=== PATIENT | female | born 1935 | race Caucasian/White ===

== ENCOUNTER 2019-03-08 11:18 | Inpatient (IN) | payer MEDICARE, BC ==
[2019-03-08] MEDS ORDERED: Albuterol/Ipratropium 3.0-0.5 MG/3 ML Neb Soln INH ONE (12:15)
[2019-03-08 12:17] LABS: CHLORIDE,CL 102 mEq/L (98-106); SODIUM,NA 142 mEq/L (136-145)
[2019-03-08] MEDS ORDERED: Iopamidol 755 Mg/ML 100 ML Bottle IVPUSH ONE (12:59)
[2019-03-08] MEDS ORDERED: Docusate Sodium 100 MG Cap PO PRN (15:22)
[2019-03-08] MEDS ORDERED: Albuterol/Ipratropium 3.0-0.5 MG/3 ML Neb Soln NEB PRN (15:22)
[2019-03-08] MEDS ORDERED: Sodium Chloride 0.9% 10 ML Syringe FLUSH PRN (15:22)
[2019-03-08] MEDS ORDERED: Albuterol 0.083% 2.5 MG/3 ML Neb Soln NEB PRN (15:35)
[2019-03-08] MEDS: Azithromycin 500 MG in Sodium Chloride 0.9% 250 ML IV SCH (15:46)
[2019-03-08] MEDS: cefTRIAXone 1 GM Vial IVPUSH SCH (15:47)
[2019-03-08] MEDS: Albuterol/Ipratropium 3.0-0.5 MG/3 ML Neb Soln NEB SCH ×2 (17:08→20:17)
[2019-03-08] MEDS: Enoxaparin 40 MG/0.4 ML Syringe SUBCUT SCH (18:42)
[2019-03-09] MEDS: Acetaminophen 325 MG Tab PO PRN (00:30)
[2019-03-09] MEDS: Hydrochlorothiazide 12.5 MG Cap PO SCH (07:35)
[2019-03-09] MEDS: Levothyroxine 50 MCG Tab PO SCH (07:35)
[2019-03-09] MEDS: Albuterol/Ipratropium 3.0-0.5 MG/3 ML Neb Soln NEB SCH ×4 (07:35→19:11)
[2019-03-09] MEDS: Aspirin 81 MG Tab.EC PO SCH (07:35)
[2019-03-09] MEDS: Losartan 100 MG Tab PO SCH (07:36)
[2019-03-09 07:47] LABS: CHLORIDE,CL 104 mEq/L (98-106); SODIUM,NA 144 mEq/L (136-145)
[2019-03-09] MEDS ORDERED: Codeine/Promethazine 10-6.25 MG/5 ML Syrup 5 ML UD Cup PO PRN (08:50)
--- NOTE | 2019-03-09 09:10 | PCM.PN ---
- General Info Date of Service: 03/09/19 Admission Dx/Problem (Free Text): Pneumonia Functional Status: Reports: Pain Controlled, Tolerating Diet, Ambulating - Review of Systems General: Reports: Weakness, Fatigue, Malaise, Chills. Denies: Fever HEENT: Reports: Sinus Congestion, Rhinitis. Denies: Ear Pain, Sore Throat Pulmonary: Reports: Shortness of Breath, Cough, Sputum Cardiovascular: Reports: Lightheadedness. Denies: Chest Pain, Edema Gastrointestinal: Denies: Abdominal Pain, Nausea, Vomiting Genitourinary: Reports: No Symptoms Musculoskeletal: Reports: No Symptoms Skin: Reports: No Symptoms Neurological: Reports: Weakness - Patient Data Vitals - Most Recent: Last Vital Signs Temp 98.5 F 03/09/19 08:00 Pulse 65 03/09/19 08:00 Resp 16 03/09/19 08:00 BP 125/61 03/09/19 08:00 Pulse Ox 94 L 03/09/19 08:00 Weight - Most Recent: 158 lb 14.4 oz Lab Results Last 24 Hours: Laboratory Results - last 24 hr 03/08/19 03/08/19 03/08/19 Range/Units 11:58 11:58 11:58 WBC 9.1 (5.0-10.0) 10^3/uL RBC 4.10 (4.00-5.50) 10^6/uL Hgb 13.0 (12.0-16.0) g/dL Hct 40.0 (37.0-47.0) % MCV 97.6 H (82.0-94.0) fL MCH 31.7 (27.0-32.0) pg MCHC 32.5 L (33.0-38.0) g/dL RDW Coeff of Rosalia 12.3 (11.0-15.0) % Plt Count 272 (150-400) 10^3/uL Neut % (Auto) 67.0 (35-85) % Lymph % (Auto) 16.3 (10-55) % Floyd % (Auto) 14.5 (0-16) % Eos % (Auto) 2.1 (0-5) % Baso % (Auto) 0.1 (0-3) % Neut # (Auto) 6.10 (1.80-7.00) 10^3/uL Lymph # (Auto) 1.48 (1.00-4.80) 10^3/uL Floyd # (Auto) 1.32 H (0.00-0.80) 10^3/uL Eos # (Auto) 0.19 (0.00-0.45) 10^3/uL Baso # (Auto) 0.01 10^3/uL D-Dimer, Quantitative 1.53 H (0.00-0.50) Sodium 142 (136-145) mEq/L Potassium 4.1 (3.5-5.0) mEq/L Chloride 102 (98-106) mEq/L Carbon Dioxide 32 (21-32) mmol/L BUN 14 (7-18) mg/dL Creatinine 0.7 (0.6-1.0) mg/dL Est Cr Clr Drug Dosing TNP Estimated GFR (MDRD) > 60 (>=60) mL/min Glucose 96 (75-99) mg/dL Lactic Acid (0.4-2.0) mmol/L Calcium 9.1 (8.4-10.1) mg/dL C-Reactive Protein 16.8 H (0.2-0.8) mg/dL 03/08/19 03/09/19 03/09/19 Range/Units 15:34 07:00 07:00 WBC 7.3 (5.0-10.0) 10^3/uL RBC 3.78 L (4.00-5.50) 10^6/uL Hgb 11.9 L (12.0-16.0) g/dL Hct 37.3 (37.0-47.0) % MCV 98.7 H (82.0-94.0) fL MCH 31.5 (27.0-32.0) pg MCHC 31.9 L (33.0-38.0) g/dL RDW Coeff of Rosalia 12.7 (11.0-15.0) % Plt Count 271 (150-400) 10^3/uL Neut % (Auto) 53.0 (35-85) % Lymph % (Auto) 30.3 (10-55) % Floyd % (Auto) 14.2 (0-16) % Eos % (Auto) 2.1 (0-5) % Baso % (Auto) 0.4 (0-3) % Neut # (Auto) 3.84 (1.80-7.00) 10^3/uL Lymph # (Auto) 2.20 (1.00-4.80) 10^3/uL Floyd # (Auto) 1.03 H (0.00-0.80) 10^3/uL Eos # (Auto) 0.15 (0.00-0.45) 10^3/uL Baso # (Auto) 0.03 10^3/uL D-Dimer, Quantitative (0.00-0.50) Sodium 144 (136-145) mEq/L Potassium 4.1 (3.5-5.0) mEq/L Chloride 104 (98-106) mEq/L Carbon Dioxide 33 H (21-32) mmol/L BUN 14 (7-18) mg/dL Creatinine 0.8 (0.6-1.0) mg/dL Est Cr Clr Drug Dosing 46.82 Estimated GFR (MDRD) > 60 (>=60) mL/min Glucose 88 (75-99) mg/dL Lactic Acid 0.7 (0.4-2.0) mmol/L Calcium 8.7 (8.4-10.1) mg/dL C-Reactive Protein 12.2 H (0.2-0.8) mg/dL 03/09/19 Range/Units 07:00 WBC (5.0-10.0) 10^3/uL RBC (4.00-5.50) 10^6/uL Hgb (12.0-16.0) g/dL Hct (37.0-47.0) % MCV (82.0-94.0) fL MCH (27.0-32.0) pg MCHC (33.0-38.0) g/dL RDW Coeff of Rosalia (11.0-15.0) % Plt Count (150-400) 10^3/uL Neut % (Auto) (35-85) % Lymph % (Auto) (10-55) % Floyd % (Auto) (0-16) % Eos % (Auto) (0-5) % Baso % (Auto) (0-3) % Neut # (Auto) (1.80-7.00) 10^3/uL Lymph # (Auto) (1.00-4.80) 10^3/uL Floyd # (Auto) (0.00-0.80) 10^3/uL Eos # (Auto) (0.00-0.45) 10^3/uL Baso # (Auto) 10^3/uL D-Dimer, Quantitative (0.00-0.50) Sodium (136-145) mEq/L Potassium (3.5-5.0) mEq/L Chloride (98-106) mEq/L Carbon Dioxide (21-32) mmol/L BUN (7-18) mg/dL Creatinine (0.6-1.0) mg/dL Est Cr Clr Drug Dosing Estimated GFR (MDRD) (>=60) mL/min Glucose (75-99) mg/dL Lactic Acid 0.6 (0.4-2.0) mmol/L Calcium (8.4-10.1) mg/dL C-Reactive Protein (0.2-0.8) mg/dL Med Orders - Current: Current Medications Acetaminophen (Tylenol) 650 mg PO Q4H PRN PRN Reason: Pain (Mild 1-3)/fever Last Admin: 03/09/19 00:30 Dose: 650 mg Albuterol (Proventil Neb Soln) 2.5 mg NEB Q4H PRN PRN Reason: Dyspnea Albuterol/Ipratropium (Duoneb 3.0-0.5 Mg/3 Ml) 3 ml NEB QIDRT [facility] Last Admin: 03/09/19 07:35 Dose: 3 ml Aspirin (Halfprin) 81 mg PO DAILY [facility] Last Admin: 03/09/19 07:35 Dose: 81 mg Ceftriaxone Sodium (Rocephin) 1 gm IVPUSH Q24H [facility] Last Admin: 03/08/19 15:47 Dose: 1 gm Docusate Sodium (Colace) 100 mg PO BID PRN PRN Reason: Constipation Enoxaparin Sodium (Lovenox) 40 mg SUBCUT Q24H [facility] Last Admin: 03/08/19 18:42 Dose: 40 mg Guaifenesin (Organ-I Nr) 200 mg PO TID [facility] Hydrochlorothiazide (Hydrochlorothiazide) 12.5 mg PO DAILY [facility] Last Admin: 03/09/19 07:35 Dose: 12.5 mg Azithromycin 500 mg/ Sodium (Chloride) 250 mls @ 250 mls/hr IV Q24H [facility] Last Admin: 03/08/19 15:46 Dose: 250 mls/hr Levothyroxine Sodium (Synthroid) 50 mcg PO DAILY [facility] Last Admin: 03/09/19 07:35 Dose: 50 mcg Losartan Potassium (Cozaar) 100 mg PO DAILY [facility] Last Admin: 03/09/19 07:36 Dose: 100 mg Promethazine HCl/Codeine (Phenergan With Codeine) 10 ml PO Q6H PRN PRN Reason: Cough Sodium Chloride (Saline Flush) 10 ml FLUSH ASDIRECTED PRN PRN Reason: Keep Vein Open Discontinued Medications Albuterol/Ipratropium (Duoneb 3.0-0.5 Mg/3 Ml) 3 ml INH ONETIME ONE Stop: 03/08/19 12:16 Last Admin: 03/08/19 12:22 Dose: 3 ml Albuterol/Ipratropium (Duoneb 3.0-0.5 Mg/3 Ml) 3 ml NEB Q4H PRN PRN Reason: Shortness Of Breath/wheezing Iopamidol (Isovue-370 (76%)) 100 ml IVPUSH ONETIME ONE Stop: 03/08/19 13:00 Last Admin: 03/08/19 16:46 Dose: 100 ml - Exam General: Alert, Oriented HEENT: Mucous Membr. Moist/[place] Neck: Supple Lungs: Decreased Breath Sounds, Crackles (left base) Cardiovascular: Regular Rate, Regular Rhythm GI/Abdominal Exam: Normal Bowel Sounds, Soft, Non-Tender Extremities: Normal Inspection, No Pedal Edema Skin: Warm, Dry Neurological: No New Focal Deficit - Problem List & Annotations (1) Pneumonia SNOMED Code(s): 116227998 Code(s): J18.9 - PNEUMONIA, UNSPECIFIED ORGANISM Status: Acute Current Visit: Yes Qualifiers: Pneumonia type: due to other aerobic Gram-negative bacteria Laterality: bilateral Lung location: lower lobe of lung Qualified Code(s): J15.6 - Pneumonia due to other Gram-negative bacteria - Problem List Review Problem List Initiated/Reviewed/Updated: Yes - My Orders Last 24 Hours: My Active Orders 03/09/19 08:50 Codeine/Promethazine [Phenergan with Codeine] 10 ml PO Q6H PRN 03/09/19 14:00 guaiFENesin [Organ-I NR] 200 mg PO TID - Assessment Assessment:: Bilateral lower lobe pneumonia - Plan Plan:: Patient continues to feel weak, lightheaded when up. Has persistent moist cough , productive at times. Feels short of breath when up. oxygen sats have been maintaining over 94% on room air. Did collect sputum specimen yesterday, waiting on microbiology. Has been afebrile. WBC remains normal today at 7.3. CRP 12.2. Lactic acid normal. Will continue with IV Zithromax and Rocephin. Neb treatments QID. Add mucinex. Prometh with codeine for cough at night. Encourage ambulation. Repeat labs in am.
[2019-03-09] MEDS: guaiFENesin 200 MG Tab PO SCH ×2 (14:26→19:11)
[2019-03-09] MEDS: cefTRIAXone 1 GM Vial IVPUSH SCH (15:27)
[2019-03-09] MEDS: Azithromycin 500 MG in Sodium Chloride 0.9% 250 ML IV SCH (15:30)
[2019-03-09] MEDS: Enoxaparin 40 MG/0.4 ML Syringe SUBCUT SCH (17:59)
[2019-03-10] MEDS: Acetaminophen 325 MG Tab PO PRN (00:01)
[2019-03-10 07:26] LABS: CHLORIDE,CL 107 mEq/L (98-106); SODIUM,NA 144 mEq/L (136-145)
[2019-03-10 07:32] VITALS: BP 126/56; PULSE 72
[2019-03-10] MEDS: Levothyroxine 50 MCG Tab PO SCH (07:33)
[2019-03-10] MEDS: guaiFENesin 200 MG Tab PO SCH ×2 (07:33→15:15)
[2019-03-10] MEDS: Aspirin 81 MG Tab.EC PO SCH (07:33)
[2019-03-10] MEDS: Losartan 100 MG Tab PO SCH (07:33)
[2019-03-10] MEDS: Hydrochlorothiazide 12.5 MG Cap PO SCH (07:33)
[2019-03-10] MEDS: Albuterol/Ipratropium 3.0-0.5 MG/3 ML Neb Soln NEB SCH ×2 (07:34→12:32)
--- NOTE | 2019-03-10 09:53 | PCM.DCSUM1 ---
Discharge Summary - Hospital Course Free Text/Narrative:: pt in with pneumonia, has been given Rocephin and Zithromax IV along with HHN tx , has been up and ambulating in the hospital without any problems, denies any sob, denies feeling weak, no cp or sob, will dc home, will continue Zithromax and have pt f/u with Dr. Malik on Thursday as scheduled. will return to ER sooner if worse or problems. Diagnosis: Stroke: No - Discharge Data Discharge Date: 03/10/19 Discharge Disposition: Home, Self-Care 01 Condition: Good - Referral to Home Health Primary Care Physician: Daniel Malik MD - Discharge Diagnosis/Problem(s) (1) Pneumonia SNOMED Code(s): 373507241 ICD Code: J18.9 - PNEUMONIA, UNSPECIFIED ORGANISM Status: Acute Current Visit: Yes Qualifiers: Pneumonia type: due to unspecified organism Laterality: bilateral Lung location: lower lobe of lung Qualified Code(s): J18.9 - Pneumonia, unspecified organism - Patient Instructions Diet: Heart Healthy Diet Activity: As Tolerated Driving: May Drive Today Showering/Bathing: May Shower Notify Provider of: Fever Other/Special Instructions: increase fluids. zithromax 500mg 1 x a day for 3 days. follow up with Dr. Malik on thursday as scheduled. retrun to the ER sooner if worse or problems - Discharge Plan *PRESCRIPTION DRUG MONITORING PROGRAM REVIEWED*: Not Applicable *COPY OF PRESCRIPTION DRUG MONITORING REPORT IN PATIENT POOJA: Not Applicable Prescriptions/Med Rec: Azithromycin [Zithromax] 500 mg PO Q24H 3 Days #3 vial Home Medications: Home Meds Aspirin [Halfprin] 81 mg PO DAILY 06/16/13 [History] Calcium Carbonate [Calcium] 600 mg PO DAILY 06/16/13 [History] Cholecalciferol (Vitamin D3) [Vitamin D3] 2,000 unit PO DAILY 06/16/13 [History] Fish Oil/[place]-3 Fatty Acids [Fish Oil 1,000 MG] 1 each PO DAILY 06/16/13 [ History] Levothyroxine Sodium [Levoxyl] 50 mcg PO DAILY 06/16/13 [History] Losartan/Hydrochlorothiazide [Losartan-HCTZ 100-12.5 MG] 1 each PO DAILY [History] Multivitamin [Multi-Vitamin Daily] 1 each PO DAILY 06/16/13 [History] Azithromycin [Zithromax] 500 mg PO Q24H 3 Days #3 vial 03/10/19 [Rx] Oxygen Therapy Mode: Room Air Patient Handouts: Community-Acquired Pneumonia, Adult - Discharge Summary/Plan Comment DC Time >30 min.: No - General Info Date of Service: 03/10/19 - Review of Systems General: Reports: No Symptoms. Denies: Fever, Weakness HEENT: Reports: No Symptoms Pulmonary: Reports: Cough. Denies: Shortness of Breath, Wheezing Cardiovascular: Reports: No Symptoms. Denies: Chest Pain, Palpitations, Dyspnea on Exertion Gastrointestinal: Reports: No Symptoms. Denies: Abdominal Pain, Nausea, Vomiting Musculoskeletal: Reports: No Symptoms. Denies: Neck Pain, Back Pain Skin: Reports: No Symptoms. Denies: Bruising Neurological: Reports: No Symptoms. Denies: Confusion, Dizziness, Headache Psychiatric: Reports: No Symptoms - Patient Data Vitals - Most Recent: Last Vital Signs Temp 37.0 C 03/10/19 07:31 Pulse 72 03/10/19 07:31 Resp 18 03/10/19 07:31 BP 126/56 L 03/10/19 07:33 Pulse Ox 96 03/10/19 07:31 Weight - Most Recent: 72.076 kg Lab Results - Last 24 hrs: Laboratory Results - last 24 hr 03/10/19 03/10/19 Range/Units 07:10 07:10 WBC 7.1 (5.0-10.0) 10^3/uL RBC 3.72 L (4.00-5.50) 10^6/uL Hgb 12.0 (12.0-16.0) g/dL Hct 36.5 L (37.0-47.0) % MCV 98.1 H (82.0-94.0) fL MCH 32.3 H (27.0-32.0) pg MCHC 32.9 L (33.0-38.0) g/dL RDW Coeff of Rosalia 12.5 (11.0-15.0) % Plt Count 285 (150-400) 10^3/uL Neut % (Auto) 57.5 (35-85) % Lymph % (Auto) 24.7 (10-55) % Barnes % (Auto) 14.3 (0-16) % Eos % (Auto) 3.2 (0-5) % Baso % (Auto) 0.3 (0-3) % Neut # (Auto) 4.10 (1.80-7.00) 10^3/uL Lymph # (Auto) 1.76 (1.00-4.80) 10^3/uL [place] # (Auto) 1.02 H (0.00-0.80) 10^3/uL Eos # (Auto) 0.23 (0.00-0.45) 10^3/uL Baso # (Auto) 0.02 10^3/uL Sodium 144 (136-145) mEq/L Potassium 4.2 (3.5-5.0) mEq/L Chloride 107 H (98-106) mEq/L Carbon Dioxide 29 (21-32) mmol/L BUN 11 (7-18) mg/dL Creatinine 0.7 (0.6-1.0) mg/dL Est Cr Clr Drug Dosing 53.51 mL/min Estimated GFR (MDRD) > 60 (>=60) mL/min Glucose 96 (75-99) mg/dL Calcium 8.7 (8.4-10.1) mg/dL C-Reactive Protein 7.7 H (0.2-0.8) mg/dL [facility] Results - Last 24 hrs: Microbiology 03/08/19 19:30 Sputum Culture - Preliminary Sputum - Expectorated Med Orders - Current: Current Medications Acetaminophen (Tylenol) 650 mg PO Q4H PRN PRN Reason: Pain (Mild 1-3)/fever Last Admin: 03/10/19 00:01 Dose: 650 mg Albuterol (Proventil Neb Soln) 2.5 mg NEB Q4H PRN PRN Reason: Dyspnea Albuterol/Ipratropium (Duoneb 3.0-0.5 Mg/3 Ml) 3 ml NEB QIDRT [facility] Last Admin: 03/10/19 07:34 Dose: 3 ml Aspirin (Halfprin) 81 mg PO DAILY [facility] Last Admin: 03/10/19 07:33 Dose: 81 mg Ceftriaxone Sodium (Rocephin) 1 gm IVPUSH Q24H [facility] Last Admin: 03/09/19 15:27 Dose: 1 gm Docusate Sodium (Colace) 100 mg PO BID PRN PRN Reason: Constipation Enoxaparin Sodium (Lovenox) 40 mg SUBCUT Q24H [facility] Last Admin: 03/09/19 17:59 Dose: 40 mg Guaifenesin (Organ-I Nr) 200 mg PO TID [facility] Last Admin: 03/10/19 07:33 Dose: 200 mg Hydrochlorothiazide (Hydrochlorothiazide) 12.5 mg PO DAILY [facility] Last Admin: 03/10/19 07:33 Dose: 12.5 mg Azithromycin 500 mg/ Sodium (Chloride) 250 mls @ 250 mls/hr IV Q24H [facility] Last Admin: 03/09/19 15:30 Dose: 250 mls/hr Levothyroxine Sodium (Synthroid) 50 mcg PO DAILY [facility] Last Admin: 03/10/19 07:33 Dose: 50 mcg Losartan Potassium (Cozaar) 100 mg PO DAILY [facility] Last Admin: 03/10/19 07:33 Dose: 100 mg Promethazine HCl/Codeine (Phenergan With Codeine) 10 ml PO Q6H PRN PRN Reason: Cough Sodium Chloride (Saline Flush) 10 ml FLUSH ASDIRECTED PRN PRN Reason: Keep Vein Open Discontinued Medications Albuterol/Ipratropium (Duoneb 3.0-0.5 Mg/3 Ml) 3 ml INH ONETIME ONE Stop: 03/08/19 12:16 Last Admin: 03/08/19 12:22 Dose: 3 ml Albuterol/Ipratropium (Duoneb 3.0-0.5 Mg/3 Ml) 3 ml NEB Q4H PRN PRN Reason: Shortness Of Breath/wheezing Iopamidol (Isovue-370 (76%)) 100 ml IVPUSH ONETIME ONE Stop: 03/08/19 13:00 Last Admin: 03/08/19 16:46 Dose: 100 ml - Exam General: Reports: Alert, Oriented, Cooperative, No Acute Distress Neck: Reports: Supple Lungs: Reports: Clear to Auscultation, Normal Respiratory Effort Cardiovascular: Reports: Regular Rate, Regular Rhythm GI/Abdominal Exam: Normal Bowel Sounds, Soft, Non-Tender Back Exam: Reports: Normal Inspection, Full Range of Motion Extremities: Normal Inspection, Normal Range of Motion, Non-Tender, No Pedal Edema, Normal Capillary Refill Skin: Reports: Warm, Dry, Intact Neurological: Reports: No New Focal Deficit Psy/Mental Status: Reports: Alert, Normal Affect, Normal Mood
[2019-03-10] MEDS: cefTRIAXone 1 GM Vial IVPUSH SCH (12:20)
[2019-03-10] MEDS: Azithromycin 500 MG in Sodium Chloride 0.9% 250 ML IV SCH (12:21)
== END 2019-03-10 16:00 | disposition home or self-care (01) | DRG 179 ==
LOC: CC.FCMC 11:18 → CC.MS 11:18 → UNDOADMIN 14:28 → CC.MS 14:28
PROVIDERS: ADMIT Physician Assistant Medical; ATTEND Family Medicine
DX: J15.6 Pneumonia due to other Gram-negative bacteria (principal); Z79.890 Hormone replacement therapy; J18.9 Pneumonia, unspecified organism; I10 Essential (primary) hypertension; M19.90 Unspecified osteoarthritis, unspecified site; D68.9 Coagulation defect, unspecified; Z79.899 Other long term (current) drug therapy; Z90.710 Acquired absence of both cervix and uterus; Z79.82 Long term (current) use of aspirin
CPT/HCPCS: 36415; 71046; 71275; 80048; 83605; 85025; 85379; 86140; 87070; 87205; 94640; A9270-GY; J0456; J0696; J1650; J7050; J7620-GY; Q9967